=== PATIENT | male | born 1985 | race Caucasian/White ===

== ENCOUNTER 2017-04-28 10:05 | Inpatient (IN) | payer OTHER ==
[2017-04-28 12:24] VITALS: BMI 26.4
--- NOTE | 2017-04-28 16:35 | HP ---
COWS - Scale Resting Pulse: 1= [place] 81-100 Sweatin= Chills/Flushing Restless Observation: 1= Difficult to Sit Still Pupil Size: 0= Normal to Room Light Bone or Joint Aches: 2= Severe Diffuse Aches Runny Nose/ Eye Tearin= Runny Nose/Eyes GI Upset > 30mins: 0= None Tremor Observation: 2= Slight Tremor Visible Yawning Observation: 1= 1-2x During Session Anxiety or Irritability: 2=Irritable/Anxious Goose Flesh Skin: 3=Piloerection COWS Score: 15 Admission ROS BHS - HPI Chief Complaint: "I need to try to change and to stop using Heroin." Pt. is here to Detox from Heroin. Allergies/Adverse Reactions: Allergies Allergy/AdvReac Type Severity Reaction Status Date / Time No Known Allergies Allergy Verified 04/28/17 16:28 History of Present Illness: Pt. Pt. has had Detox admissions at other locations, including [facility] ( [place] and [facility] ([place] Most recent Detox admission: [facility] ( approx. 1 week ago). Exam Limitations: No Limitations - Ebola screening Have you traveled outside of the country in the last 21 days: No Have you had contact with anyone from an Ebola affected area: No Have you been sick,other than usual withdrawal symptoms: No Do you have a fever: No - Review of Systems Constitutional: Chills, Diaphoresis, Fever, Loss of Appetite, Malaise, Night Sweats, Changes in sleep, Unintentional Wgt. Loss (Lost approx. 25 lbs. over the last 2 months.) EENT: reports: Tearing, Nose Congestion, Sinus Pressure Respiratory: reports: Productive cough Cardiac: reports: No Symptoms Reported GI: reports: Nausea, Poor Appetite, Vomiting : reports: No Symptoms Reported Musculoskeletal: reports: Back Pain, Joint Pain, Joint Stiffness Integumentary: reports: No Symptoms Reported Neuro: reports: Tremors Endocrine: reports: No Symptoms Reported Hematology: reports: No Symptoms Reported Psychiatric: reports: Judgement Intact, Mood/Affect Appropiate, Anxious, Depressed (Due to Drug Use.), Disorientated (To Day / Date.) Other Systems: Reviewed and Negative Patient History - Patient Medical History Hx Anemia: No Hx Asthma: No Hx Chronic Obstructive Pulmonary Disease (COPD): No Hx Cancer: No Hx Cardiac Disorders: No Hx Congestive Heart Failure: No Hx Hypertension: No Hx Hypercholesterolemia: No Hx Pacemaker: No HX Cerebrovascular Accident: No Hx Seizures: No Hx Dementia: No Hx Diabetes: No Hx Gastrointestinal Disorders: No Hx Liver Disease: No Hx Genitourinary Disorders: No Hx Sexually Transmitted Disorders: No Hx Renal Disease (ESRD): No Hx Thyroid Disease: No Hx Human Immunodeficiency Virus (HIV): No (Last Tested: approx. 1 year ago: NEGATIVE.) Hx Hepatitis C: No (Last Tested: approx. 1 year ago: NEGATIVE.) Hx Depression: Yes (Due to Drug use. Pt. declines to see Psychiatrist while admitted to Detox.) Hx Suicide Attempt: No (PATIENT DENIES CURRENT SI / HI.) Hx Bipolar Disorder: No Hx Schizophrenia: No Other Medical History: DENIES. - Patient Surgical History Past Surgical History: No Hx Neurologic Surgery: No Hx Cataract Extraction: No Hx Cardiac Surgery: No Hx Lung Surgery: No Hx Breast Surgery: No Hx Breast Biopsy: No Hx Abdominal Surgery: No Hx Appendectomy: No Hx Cholecystectomy: No Hx Genitourinary Surgery: No Hx Section: No Hx Orthopedic Surgery: No Anesthesia Reaction: No - PPD History Previous Implant?: Yes Documented Results: Negative w/o proof Implanted On Prior R Admission?: No PPD to be Administered?: Yes - Reproductive History Patient is a Female of Child Bearing Age (11 -55 yrs old): No (PATIENT IS MALE.) - Smoking Cessation Smoking history: Current every day smoker Have you smoked in the past 12 months: Yes Aproximately how many cigarettes per day: 20 Cigars Per Day: 0 Hx Chewing Tobacco Use: No Initiated information on smoking cessation: Yes 'Breaking Loose' booklet given: 04/28/17 (GIVEN TO PATIENT.) - Substance & Tx. History Hx Alcohol Use: No Hx Substance Use: Yes Substance Use Type: Cocaine, Heroin, Opiates Hx Substance Use Treatment: Yes (Previous Detox admissions at [facility], [facility]. Most Recent: [facility] (05/02).) - Substances Abused Heroin Route: Injection Frequency: Daily Amount used: 15 bags Age of first use: 15 Date of Last Use: 04/27/17 Crack Route: Smoking Frequency: Daily Amount used: $100 Age of first use: 20 Date of Last Use: 04/27/17 street methadone Route: Oral Frequency: Daily Amount used: 60 mg. Age of first use: 31 Date of Last Use: 04/07/17 Family Disease History - Family Disease History Family Disease History: Diabetes: Grandparent Admission Physical Exam [facility] - Vital Signs Vital Signs: Vital Signs - 24 hr 04/28/17 12:23 Temperature 96.2 F L Pulse Rate 87 Respiratory 20 Rate Blood Pressure 124/86 - Physical General Appearance: Yes: Nourished, Appropriately Dressed, Mild Distress, Tremorous, Anxious HEENTM: Yes: Hearing grossly Normal, Normocephalic, Normal Voice, FAM, Pharynx Normal Respiratory: Yes: Chest Non-Tender, Lungs Clear, No Respiratory Distress, No Accessory Muscle Use Neck: Yes: No masses,lesions,Nodules, Supple, Trachea in good position Breast: Yes: Breast Exam Deferred Cardiology: Yes: Regular Rhythm, Regular Rate, S1, S2 Abdominal: Yes: Normal Bowel Sounds, Non Tender, Flat, Soft Genitourinary: Yes: Within Normal Limits Back: Yes: Decreased Range of Motion Musculoskeletal: Yes: Gait Steady, Joint Stiffness Extremities: Yes: Non-Tender, Tremors Neurological: Yes: Alert, Normal Mood/Affect, Normal Response, Disoriented (To Current Day / Date.) Integumentary: Yes: Normal Color, Dry, Warm, Track Graves (Noted on Bilateral Hands. No signs of infection noted at any affected site.) Lymphatic: Yes: Within Normal Limits - Diagnostic (1) Opioid dependence with withdrawal Current Visit: Yes Status: Acute (2) Cocaine dependence, uncomplicated Current Visit: Yes Status: Acute (3) Nicotine dependence Current Visit: Yes Status: Chronic Qualifiers: Nicotine product type: cigarettes Substance use status: uncomplicated Qualified Code(s): F17.210 - Nicotine dependence, cigarettes, uncomplicated; F17.210 - Nicotine dependence, cigarettes, uncomplicated Cleared for Admission [facility] - Detox or Rehab [facility] Level of Care: Medically Managed Detox Regimen/Protocol: Methadone [facility] Breath Alcohol Content Breath Alcohol Content: 0 Urine Drug Screen - Results Drug Screen Negative: No Urine Drug Screen Results: RICKEY-Cocaine, OPI-Opiates
[2017-04-28] MEDS ORDERED: guaiFENesin/D-METHORPHAN HB 10 ML UNIT-DOSE CUPS PO PRN (17:08)
[2017-04-28] MEDS ORDERED: MAGNESIUM CITRATE 300 ML BOTTLE PO PRN (17:08)
[2017-04-28] MEDS ORDERED: LOPERAMIDE HCL 2 MG CAPSULE PO PRN (17:08)
[2017-04-28] MEDS ORDERED: MENTHOL/PHENOL 1 EACH UD MM PRN (17:08)
[2017-04-28] MEDS ORDERED: MAG HYDROX/AL HYDROX/SIMETH 30 ML UNIT-DOSE CUP PO PRN (17:08)
[2017-04-28] MEDS ORDERED: MAGNESIUM HYDROX 2400MG/30ML ORAL SUSPENSION 30 ML CUP PO PRN (17:08)
[2017-04-28] MEDS ORDERED: P-EPHED 60MG/TRIPROLIDI 2.5MG TABLET PO PRN (17:08)
[2017-04-28] MEDS ORDERED: ACETAMINOPHEN 325 MG TABLET (FP) PO PRN (17:08)
[2017-04-28] MEDS ORDERED: METHADONE HCL 10 MG TABLET (FOR DETOX USE ONLY) PO ONE ×2 (17:45→23:00)
[2017-04-28] MEDS: diazePAM 5 MG TABLET PO PRN (18:16)
[2017-04-28] MEDS: NICOTINE 21 MG/24 HOURS TOPICAL PATCH TD SCH (18:30)
[2017-04-28] MEDS: NICOTINE POLACRILEX 2 MG GUM BC PRN (18:31)
[2017-04-28 20:27] LABS: URINE APPEARANCE SLCLOUDY; URINE BILIRUBIN NEGATIVE (NEGATIVE); URINE BLOOD NEGATIVE (NEGATIVE); URINE COLOR DKYELLOW; URINE GLUCOSE (UA) NEGATIVE (NEGATIVE); URINE KETONE 2+ (NEGATIVE); URINE NITRITE NEGATIVE (NEGATIVE); URINE PROTEIN NEGATIVE (NEGATIVE)
[2017-04-28 22:02] LABS: URINE LEUK ESTERASE Negative (NEGATIVE)
[2017-04-28] MEDS: diphenhydrAMINE HCL 50 MG CAPSULE PO PRN (22:21)
[2017-04-28] MEDS: THIAMINE HCL 100 MG TABLET (FP) PO SCH (22:21)
[2017-04-29] MEDS ORDERED: METHADONE HCL 10 MG TABLET (FOR DETOX USE ONLY) PO ONE (10:00)
[2017-04-29] MEDS: PRENATAL VITAMINS W/ FOLIC ACID TABLET (FP) PO SCH (10:51)
[2017-04-29] MEDS: NICOTINE 21 MG/24 HOURS TOPICAL PATCH TD SCH (10:52)
[2017-04-29] MEDS: NICOTINE POLACRILEX 2 MG GUM BC PRN ×2 (10:52→13:19)
[2017-04-29 10:53] LABS: MCH 29.5 pg (25.7-33.7); MCHC 32.8 g/dl (32.0-35.9); MEAN PLT VOLUME 10.3 fl (7.5-11.1); RDW 13.1 % (11.9-15.9); WHITE BLOOD COUNT 7.3 K/mm3 (4.0-10.0)
[2017-04-29 11:09] LABS: ALBUMIN 4.3 g/dl (3.4-5.0); ANION GAP 5 (8-16); CO2 30 mmol/L (21-32); GLUCOSE,RANDOM 79 mg/dL (74-106)
[2017-04-29] MEDS ORDERED: CYCLOBENZAPRINE HCL 10 MG TABLET (FP) PO PRN (11:36)
[2017-04-29] MEDS: IBUPROFEN 400 MG TABLET (FP) PO PRN (12:08)
[2017-04-29 12:40] LABS: PLATELET COUNT 91 K/MM3 (134-434); PLATELET ESTIMATE DECREASED (NORMAL)
[2017-04-29 12:41] LABS: PLATELET COMMENT2 NO CLOTTING DETECTED
--- NOTE | 2017-04-29 12:53 | EKG ---
Test Reason : Blood Pressure : / mmHG Vent. Rate : 076 BPM Atrial Rate : 076 BPM P-R Int : 174 ms QRS Dur : 100 ms QT Int : 394 ms P-R-T Axes : 069 081 059 degrees QTc Int : 443 ms NORMAL SINUS RHYTHM POSSIBLE LEFT ATRIAL ENLARGEMENT LEFT VENTRICULAR HYPERTROPHY EARLY REPOLARIZATION ABNORMAL ECG NO PREVIOUS ECGS AVAILABLE Confirmed by IVETTE PINON MD ([id number]) on 04/29/2017 12:53:11 PM Referred By: Confirmed By:IVETTE PINON MD
[2017-04-29 12:57] LABS: ALK PHOS 75 U/L (45-117); BILIRUBIN,TOTAL 0.8 mg/dL (0.2-1.0); CREATININE 1.1 mg/dL (0.7-1.3); SGOT/AST 27 U/L (15-37); SGPT/ALT 26 U/L (12-78); TOT PROT 7.7 g/dl (6.4-8.2)
[2017-04-29 13:30] LABS: CALCIUM 9.6 mg/dL (8.5-10.1)
--- NOTE | 2017-04-29 16:39 | PN ---
S COWS - Scale Resting Pulse: 1= [place] 81-100 Sweatin= Chills/Flushing Restless Observation: 1= Difficult to Sit Still Pupil Size: 0= Normal to Room Light Bone or Joint Aches: 2= Severe Diffuse Aches Runny Nose/ Eye Tearin= Nasal Congestion GI Upset > 30mins: 2= Nausea/Diarrhea Tremor Observation of Outstretched Hands: 0= None Yawning Observation: 2= >3x During Session Anxiety or Irritability: 2=Irritable/Anxious Goose Flesh Skin: 3=Piloerection COWS Score: 15 S Progress Note (SOAP) Subjective: Diarrhea, Sweating, Body Aches. Objective: PT. A & O X 3, OBSERVED AMBULATING ON UNIT. NO ACUTE DISTRESS. 04/29/17 16:37 Vital Signs Temperature 97.2 F L 04/29/17 13:46 Pulse Rate 81 04/29/17 13:46 Respiratory Rate 18 04/29/17 13:46 Blood Pressure 99/63 04/29/17 13:46 O2 Sat by Pulse Oximetry (%) Laboratory Tests 04/28/17 04/29/17 04/29/17 19:00 06:00 06:00 WBC 7.3 RBC 5.57 Hgb 16.4 Hct 50.1 H MCV 90.0 MCH 29.5 MCHC 32.8 RDW 13.1 Plt Count 91 L MPV 10.3 Platelet Estimate Decreased Platelet Comment No clotting detected Sodium 140 Potassium 4.8 Chloride 105 Carbon Dioxide 30 Anion Gap 5 L BUN 18 Creatinine 1.1 Creat Clearance w eGFR > 60 Random Glucose 79 Calcium 9.6 Total Bilirubin 0.8 AST 27 ALT 26 Alkaline Phosphatase 75 Total Protein 7.7 Albumin 4.3 Urine Color Dkyellow Urine Appearance Slcloudy Urine pH 6.0 Ur Specific [place] 1.015 Urine Protein Negative Urine Glucose (UA) Negative Urine Ketones 2+ H Urine Blood Negative Urine Nitrite Negative Urine Bilirubin Negative Urine Urobilinogen 2.0 Ur Leukocyte Esterase Negative RPR Titer 04/29/17 06:00 WBC RBC Hgb Hct MCV MCH MCHC RDW Plt Count MPV Platelet Estimate Platelet Comment Sodium Potassium Chloride Carbon Dioxide Anion Gap BUN Creatinine Creat Clearance w eGFR Random Glucose Calcium Total Bilirubin AST ALT Alkaline Phosphatase Total Protein Albumin Urine Color Urine Appearance Urine pH Ur Specific [place] Urine Protein Urine Glucose (UA) Urine Ketones Urine Blood Urine Nitrite Urine Bilirubin Urine Urobilinogen Ur Leukocyte Esterase RPR Titer Nonreactive labs noted. Assessment: 04/29/17 16:38 WITHDRAWAL SYMPTOMS. Plan: CONTINUE DETOX. INCREASE DAILY PO FLUID INTAKE.
[2017-04-29] MEDS: diazePAM 5 MG TABLET PO PRN ×2 (17:48→22:41)
[2017-04-29] MEDS: diphenhydrAMINE HCL 50 MG CAPSULE PO PRN (22:42)
[2017-04-29] MEDS: THIAMINE HCL 100 MG TABLET (FP) PO SCH (22:42)
[2017-04-30] MEDS: diazePAM 5 MG TABLET PO PRN ×4 (05:40→22:39)
[2017-04-30] MEDS ORDERED: METHADONE HCL 5 MG TABLET (FOR DETOX USE ONLY) PO ONE (10:00)
[2017-04-30] MEDS: NICOTINE 21 MG/24 HOURS TOPICAL PATCH TD SCH (10:34)
[2017-04-30] MEDS: NICOTINE POLACRILEX 2 MG GUM BC PRN (10:34)
[2017-04-30] MEDS: PRENATAL VITAMINS W/ FOLIC ACID TABLET (FP) PO SCH (10:34)
[2017-04-30] MEDS: IBUPROFEN 400 MG TABLET (FP) PO PRN (11:40)
--- NOTE | 2017-04-30 13:07 | PN ---
BHS COWS - Scale Resting Pulse: 2= [place] 101-120 Sweatin= Chills/Flushing Restless Observation: 3= Extraneous Movement Pupil Size: 0= Normal to Room Light Bone or Joint Aches: 4=Acute Joint/Muscle Pain Runny Nose/ Eye Tearin= Nasal Congestion GI Upset > 30mins: 1= Stomach Cramp Tremor Observation of Outstretched Hands: 1= Tremor [place], Not Seen Yawning Observation: 1= 1-2x During Session Anxiety or Irritability: 2=Irritable/Anxious Goose Flesh Skin: 0=Smooth Skin COWS Score: 16 S Progress Note (SOAP) Subjective: BODY ACHES, SWEATS,IRRITABILITY,FATIGUE. Objective: 04/30/17 12:57 Vital Signs Temperature 98.1 F 04/30/17 10:05 Pulse Rate 106 H 04/30/17 10:05 Respiratory Rate 20 04/30/17 10:05 Blood Pressure 115/70 04/30/17 10:05 O2 Sat by Pulse Oximetry (%) Laboratory Last Values WBC 7.3 K/mm3 (4.0-10.0) 04/29/17 06:00 RBC 5.57 M/mm3 (4.00-5.60) 04/29/17 06:00 Hgb 16.4 GM/dL (11.7-16.9) 04/29/17 06:00 Hct 50.1 % (35.4-49) H 04/29/17 06:00 MCV 90.0 fl (80-96) 04/29/17 06:00 MCH 29.5 pg (25.7-33.7) 04/29/17 06:00 MCHC 32.8 g/dl (32.0-35.9) 04/29/17 06:00 RDW 13.1 % (11.9-15.9) 04/29/17 06:00 Plt Count 91 K/MM3 (134-434) L 04/29/17 06:00 MPV 10.3 fl (7.5-11.1) 04/29/17 06:00 Platelet Estimate Decreased (NORMAL) 04/29/17 06:00 Platelet Comment No clumping noted 04/29/17 06:00 Platelet Comment No clotting detected 04/29/17 06:00 Sodium 140 mmol/L (136-145) 04/29/17 06:00 Potassium 4.8 mmol/L (3.5-5.1) 04/29/17 06:00 Chloride 105 mmol/L (98-107) 04/29/17 06:00 Carbon Dioxide 30 mmol/L (21-32) 04/29/17 06:00 Anion Gap 5 (8-16) L 04/29/17 06:00 BUN 18 mg/dL (7-18) 04/29/17 06:00 Creatinine 1.1 mg/dL (0.7-1.3) 04/29/17 06:00 Creat Clearance w eGFR > 60 (>60) 04/29/17 06:00 Random Glucose 79 mg/dL (74-106) 04/29/17 06:00 Calcium 9.6 mg/dL (8.5-10.1) 04/29/17 06:00 Total Bilirubin 0.8 mg/dL (0.2-1.0) 04/29/17 06:00 AST 27 U/L (15-37) 04/29/17 06:00 ALT 26 U/L (12-78) 04/29/17 06:00 Alkaline Phosphatase 75 U/L (45-117) 04/29/17 06:00 Total Protein 7.7 g/dl (6.4-8.2) 04/29/17 06:00 Albumin 4.3 g/dl (3.4-5.0) 04/29/17 06:00 Urine Color Dkyellow 04/28/17 19:00 Urine Appearance Slcloudy 04/28/17 19:00 Urine pH 6.0 (5.0-8.0) 04/28/17 19:00 Ur Specific [place] 1.015 (1.005-1.025) 04/28/17 19:00 Urine Protein Negative (NEGATIVE) 04/28/17 19:00 Urine Glucose (UA) Negative (NEGATIVE) 04/28/17 19:00 Urine Ketones 2+ (NEGATIVE) H 04/28/17 19:00 Urine Blood Negative (NEGATIVE) 04/28/17 19:00 Urine Nitrite Negative (NEGATIVE) 04/28/17 19:00 Urine Bilirubin Negative (NEGATIVE) 04/28/17 19:00 Urine Urobilinogen 2.0 mg/dL (0.2-1.0) 04/28/17 19:00 Ur Leukocyte Esterase Negative (NEGATIVE) 04/28/17 19:00 RPR Titer Nonreactive (NONREACTIVE) 04/29/17 06:00 Assessment: 04/30/17 13:07 WITHDRAWAL SX Plan: CONTINUE DETOX FLEXERIL DIRECTED
[2017-04-30] MEDS: CYCLOBENZAPRINE HCL 10 MG TABLET (FP) PO SCH ×2 (13:50→22:40)
[2017-04-30] MEDS: diphenhydrAMINE HCL 50 MG CAPSULE PO PRN (22:40)
[2017-04-30] MEDS: THIAMINE HCL 100 MG TABLET (FP) PO SCH (22:40)
[2017-05-01] MEDS: diazePAM 5 MG TABLET PO PRN ×3 (05:45→16:38)
[2017-05-01] MEDS: CYCLOBENZAPRINE HCL 10 MG TABLET (FP) PO SCH ×3 (05:45→22:14)
[2017-05-01] MEDS ORDERED: METHADONE HCL 5 MG TABLET (FOR DETOX USE ONLY) PO ONE (10:00)
[2017-05-01] MEDS: PRENATAL VITAMINS W/ FOLIC ACID TABLET (FP) PO SCH (10:44)
[2017-05-01] MEDS: NICOTINE 21 MG/24 HOURS TOPICAL PATCH TD SCH (10:45)
--- NOTE | 2017-05-01 12:36 | PN ---
BHS Progress Note (SOAP) Subjective: Sweating, Body Aches, Fatigue. Objective: PT. A & O X 3, OBSERVED AMBULATING ON UNIT. NO ACUTE DISTRESS. 05/01/17 12:33 Vital Signs Temperature 97.5 F L 05/01/17 09:52 Pulse Rate 70 05/01/17 09:52 Respiratory Rate 20 05/01/17 09:52 Blood Pressure 105/56 05/01/17 09:52 O2 Sat by Pulse Oximetry (%) Laboratory Tests 04/28/17 04/29/17 04/29/17 19:00 06:00 06:00 WBC 7.3 RBC 5.57 Hgb 16.4 Hct 50.1 H MCV 90.0 MCH 29.5 MCHC 32.8 RDW 13.1 Plt Count 91 L MPV 10.3 Platelet Estimate Decreased Platelet Comment No clotting detected Sodium 140 Potassium 4.8 Chloride 105 Carbon Dioxide 30 Anion Gap 5 L BUN 18 Creatinine 1.1 Creat Clearance w eGFR > 60 Random Glucose 79 Calcium 9.6 Total Bilirubin 0.8 AST 27 ALT 26 Alkaline Phosphatase 75 Total Protein 7.7 Albumin 4.3 Urine Color Dkyellow Urine Appearance Slcloudy Urine pH 6.0 Ur Specific [place] 1.015 Urine Protein Negative Urine Glucose (UA) Negative Urine Ketones 2+ H Urine Blood Negative Urine Nitrite Negative Urine Bilirubin Negative Urine Urobilinogen 2.0 Ur Leukocyte Esterase Negative RPR Titer 04/29/17 06:00 WBC RBC Hgb Hct MCV MCH MCHC RDW Plt Count MPV Platelet Estimate Platelet Comment Sodium Potassium Chloride Carbon Dioxide Anion Gap BUN Creatinine Creat Clearance w eGFR Random Glucose Calcium Total Bilirubin AST ALT Alkaline Phosphatase Total Protein Albumin Urine Color Urine Appearance Urine pH Ur Specific [place] Urine Protein Urine Glucose (UA) Urine Ketones Urine Blood Urine Nitrite Urine Bilirubin Urine Urobilinogen Ur Leukocyte Esterase RPR Titer Nonreactive LABS NOTED. Assessment: 05/01/17 12:34 WITHDRAWAL SYMPTOMS. Plan: CONTINUE DETOX. PRN FLEXERIL PO FOR BODY ACHES / MUSCLE SPASMS. INCREASE DAILY PO FLUID INTAKE.
[2017-05-01] MEDS: THIAMINE HCL 100 MG TABLET (FP) PO SCH (22:14)
[2017-05-01] MEDS: diphenhydrAMINE HCL 50 MG CAPSULE PO PRN (22:14)
[2017-05-02] MEDS: CYCLOBENZAPRINE HCL 10 MG TABLET (FP) PO SCH ×3 (05:36→22:23)
[2017-05-02] MEDS: hydrOXYzine PAMOATE 50 MG CAPSULE (FP) PO PRN ×2 (05:37→19:10)
[2017-05-02] MEDS: IBUPROFEN 400 MG TABLET (FP) PO PRN (05:38)
[2017-05-02] MEDS ORDERED: METHADONE HCL 10 MG TABLET (FOR DETOX USE ONLY) PO ONE (10:00)
[2017-05-02] MEDS: PRENATAL VITAMINS W/ FOLIC ACID TABLET (FP) PO SCH (10:55)
[2017-05-02] MEDS: NICOTINE 21 MG/24 HOURS TOPICAL PATCH TD SCH (10:55)
--- NOTE | 2017-05-02 12:59 | PN ---
BHS Progress Note (SOAP) Subjective: Fatigue. Objective: PT. A & O X 3, OBSERVED AMBULATING ON UNIT. NO ACUTE DISTRESS. 05/02/17 12:57 Vital Signs Temperature 97.5 F L 05/02/17 11:36 Pulse Rate 72 05/02/17 11:36 Respiratory Rate 18 05/02/17 11:36 Blood Pressure 103/55 05/02/17 11:36 O2 Sat by Pulse Oximetry (%) Laboratory Tests 04/28/17 04/29/17 04/29/17 19:00 06:00 06:00 WBC 7.3 RBC 5.57 Hgb 16.4 Hct 50.1 H MCV 90.0 MCH 29.5 MCHC 32.8 RDW 13.1 Plt Count 91 L MPV 10.3 Platelet Estimate Decreased Platelet Comment No clotting detected Sodium 140 Potassium 4.8 Chloride 105 Carbon Dioxide 30 Anion Gap 5 L BUN 18 Creatinine 1.1 Creat Clearance w eGFR > 60 Random Glucose 79 Calcium 9.6 Total Bilirubin 0.8 AST 27 ALT 26 Alkaline Phosphatase 75 Total Protein 7.7 Albumin 4.3 Urine Color Dkyellow Urine Appearance Slcloudy Urine pH 6.0 Ur Specific [place] 1.015 Urine Protein Negative Urine Glucose (UA) Negative Urine Ketones 2+ H Urine Blood Negative Urine Nitrite Negative Urine Bilirubin Negative Urine Urobilinogen 2.0 Ur Leukocyte Esterase Negative RPR Titer 04/29/17 06:00 WBC RBC Hgb Hct MCV MCH MCHC RDW Plt Count MPV Platelet Estimate Platelet Comment Sodium Potassium Chloride Carbon Dioxide Anion Gap BUN Creatinine Creat Clearance w eGFR Random Glucose Calcium Total Bilirubin AST ALT Alkaline Phosphatase Total Protein Albumin Urine Color Urine Appearance Urine pH Ur Specific [place] Urine Protein Urine Glucose (UA) Urine Ketones Urine Blood Urine Nitrite Urine Bilirubin Urine Urobilinogen Ur Leukocyte Esterase RPR Titer Nonreactive LABS NOTED. Assessment: 05/02/17 12:58 WITHDRAWAL SYMPTOMS. Plan: CONTINUE DETOX. INCREASE DAILY PO FLUID INTAKE.
[2017-05-02] MEDS: THIAMINE HCL 100 MG TABLET (FP) PO SCH (22:23)
[2017-05-03] MEDS: CYCLOBENZAPRINE HCL 10 MG TABLET (FP) PO SCH (05:24)
[2017-05-03] MEDS ORDERED: METHADONE HCL 5 MG TABLET (FOR DETOX USE ONLY) PO ONE (06:00)
[2017-05-03 06:22] VITALS: BP 123/67; PULSE 66; TEMP 97
--- NOTE | 2017-05-03 14:40 | DS ---
[facility] Detox Discharge Summary Admission Date: 04/28/17 Discharge Date: 05/03/17 - History Present History: Alcohol Dependence, Cocaine Dependence Additional Comments: PATIENT ADVISED TO CONSIDER LOCAL 12-STEP / AA / NA OUTPATIENT SUPPORT GROUPS FOR AFTERCARE. PATIENT WAS DISCHARGED FROM DETOX UNIT IN STABLE MEDICAL CONDITION. Pertinent Past History: Depression, nicotine Dependence. - Physical Exam Results Vital Signs: Vital Signs Temperature 97 F L 05/03/17 06:21 Pulse Rate 66 05/03/17 06:21 Respiratory Rate 18 05/03/17 06:21 Blood Pressure 123/67 05/03/17 06:21 O2 Sat by Pulse Oximetry (%) Pertinent Admission Physical Exam Findings: WITHDRAWAL SYMPTOMS. Laboratory Tests 04/28/17 04/29/17 04/29/17 19:00 06:00 06:00 WBC 7.3 RBC 5.57 Hgb 16.4 Hct 50.1 H MCV 90.0 MCH 29.5 MCHC 32.8 RDW 13.1 Plt Count 91 L MPV 10.3 Platelet Estimate Decreased Platelet Comment No clotting detected Sodium 140 Potassium 4.8 Chloride 105 Carbon Dioxide 30 Anion Gap 5 L BUN 18 Creatinine 1.1 Creat Clearance w eGFR > 60 Random Glucose 79 Calcium 9.6 Total Bilirubin 0.8 AST 27 ALT 26 Alkaline Phosphatase 75 Total Protein 7.7 Albumin 4.3 Urine Color Dkyellow Urine Appearance Slcloudy Urine pH 6.0 Ur Specific [place] 1.015 Urine Protein Negative Urine Glucose (UA) Negative Urine Ketones 2+ H Urine Blood Negative Urine Nitrite Negative Urine Bilirubin Negative Urine Urobilinogen 2.0 Ur Leukocyte Esterase Negative RPR Titer 04/29/17 06:00 WBC RBC Hgb Hct MCV MCH MCHC RDW Plt Count MPV Platelet Estimate Platelet Comment Sodium Potassium Chloride Carbon Dioxide Anion Gap BUN Creatinine Creat Clearance w eGFR Random Glucose Calcium Total Bilirubin AST ALT Alkaline Phosphatase Total Protein Albumin Urine Color Urine Appearance Urine pH Ur Specific [place] Urine Protein Urine Glucose (UA) Urine Ketones Urine Blood Urine Nitrite Urine Bilirubin Urine Urobilinogen Ur Leukocyte Esterase RPR Titer Nonreactive LABS NOTED. - Treatment Hospital Course: Detox Protocol Followed, Detoxed Safely, Responded well, Discharged Condition Good Patient has Accepted a Rehab Referral to: PATIENT ADVISED TO CONSIDER LOCAL 12- STEP/NA/AA OUTPATIENT SUPPORT GROUPS. - Medication Discharge Medications: Ambulatory Orders NK [No Known Home Medication] 04/28/17 - Diagnosis (1) Opioid dependence with withdrawal Status: Acute (2) Cocaine dependence, uncomplicated Status: Acute (3) Nicotine dependence Status: Chronic Qualifiers: Nicotine product type: cigarettes Substance use status: in withdrawal Qualified Code(s): F17.213 - Nicotine dependence, cigarettes, with withdrawal; F17.213 - Nicotine dependence, cigarettes, with withdrawal - AMA Did Patient Leave Against Medical Advice: No
== END 2017-05-03 06:35 | disposition home or self-care (01) | DRG 773 ==
LOC: YASAS 10:05 → Y3N 16:50
PROVIDERS: ADMIT Internal Medicine; ATTEND Internal Medicine
PROC: HZ2ZZZZ Detoxification Services for Substance Abuse Treatment (ICD-10-PCS; principal; 2017-04-28)
DX: F11.23 Opioid dependence with withdrawal (principal); F14.20 Cocaine dependence, uncomplicated; F17.213 Nicotine dependence, cigarettes, with withdrawal; F32.9 Major depressive disorder, single episode, unspecified
CPT/HCPCS: 36415; 80053; 81003; 85027; 86593; 93005; 93010